=== PATIENT | female | born 1995 | race Caucasian/White ===

== ENCOUNTER 2016-04-21 21:06 | Emergency (ER) | payer OTHER ==
[~2016-04-21] VITALS: Ht 162.6 cm; Wt 64.0 kg
[2016-04-21 21:08] VITALS: BP 129/76; PULSE 92; RESP 18; TEMP 98.2; O2SAT 98
[2016-04-21] MEDS ORDERED: MULT-120 PO (23:22)
[2016-04-21] MEDS ORDERED: SULF400T PO (23:25)
[2016-04-21 23:26] VITALS: BP 124/59; PULSE 73; RESP 18; O2SAT 100
[2016-04-22 00:17] LABS: BACTERIA, URINE RARE /hpf; BLOOD, URINE TRACE (NEG); COMMENT (UR) CULTURE INDICATED; CULTURE IF INDICATED CULTURE INDICATED; GLUCOSE,URINE NEG (NEG); HYALINE CAST, URINE 2 /lpf (RARE); KETONE, URINE NEG (NEG); MUCUS URINE FEW /lpf (OCC); NITRITE,URINE NEG (NEG); PH, URINE 6.5 (5.0-8.5); SQUAMOUS EPITHELIAL CELL URINE 2 /hpf (0-5); URINE COLOR YELLOW (YELLW/STRAW)
[2016-04-22] MEDS ORDERED: MUPI2OIN TOPICAL (01:03)
[2016-04-22] MEDS ORDERED: CEPH-460 PO (01:03)
--- NOTE | 2016-04-22 01:04 | PD ---
HPI Chief Complaint: Complaint Time Seen by Provider: 23:21 Travel History International Travel<30 days: No Contact w/Intl Traveler<30days: No Traveled to known affect area: No History of Present Illness HPI To 21 year-old woman presents to the emergency department complaining of vaginal irritation and discomfort. She states that she has had frequent urinary tract infections in the past. About 5 days ago she started getting urinary frequency and burning similar to previous urinary tract infections. She was given up her physician for Bactrim. Since that time she's had worsening pain and irritation in her vault as well as painful discomfort, some vaginal discharge, and some back pain. She's taken 3 days of Bactrim now. States she's had yeast infection one time hospital wasn't this bad. History Past Medical History Medical History: Denies Significant Hx Tetanus Vaccination: > 5 Years Influenza Vaccination: No LMP: 10/30/15 : 1 Para: 1 Social History Alcohol Use: No Tobacco Use: No Allergies-Medications (Allergen,Severity, Reaction): Coded Allergies: No Known Allergies (Unverified , 04/21/16) Reported Meds & Prescriptions Reported Meds & Active Scripts Active Reported Sulfamethoxazole-Trimethoprim 400-80 Mg Tab 1 Tab PO DAILY Multivitamin Women (Multiple Vitamins W/ Minerals) 1 Tab Tab 1 Tab PO DAILY Review of Systems Except as stated in HPI: all other systems reviewed are Neg Physical Exam Narrative GENERAL: Well-appearing 21-year-old, no acute distress. SKIN: Warm and dry. HEENT: Impetigo-like rash just pulled the lower lip. CARDIOVASCULAR: Regular rate and rhythm. No murmur appreciated. RESPIRATORY: No accessory muscle use. Clear to auscultation. Breath sounds equal bilaterally. GASTROINTESTINAL: Abdomen soft, non-tender, nondistended. Hepatic and splenic margins not palpable. MUSCULOSKELETAL: No obvious deformities. No edema. NEUROLOGICAL: Awake and alert. No obvious cranial nerve deficits. Motor grossly within normal limits. Normal speech. : She appears to have crusting scabbing on the left labia minora with some edema and irritation. The small ulceration on the vulva as well but does not appear herpetiform. Some scant discharge. Otherwise unremarkable. Data Data Last Documented VS Vital Signs Date Time Temp Pulse Resp B/P Pulse Ox O2 Delivery O2 Flow Rate FiO2 04/21/16 23:26 73 18 124/59 100 Room Air 2/10/17 21:08 98.2 Orders Urinalysis - C+S If Indicated (04/21/16 23:36) Wet Prep Profile (04/21/16 23:36) Gc And Chlamydia Pcr (04/21/16 23:36) Ed Urine Pregnancytest Poc (04/21/16 23:40) Urine Culture (04/21/16 23:40) Labs Laboratory Tests Test 04/21/16 04/22/16 23:40 00:00 Urine Color YELLOW Urine Turbidity HAZY Urine pH 6.5 Urine Specific [place] 1.028 Urine Protein TRACE mg/dL Urine Glucose (UA) NEG mg/dL Urine Ketones NEG mg/dL Urine Occult Blood TRACE Urine Nitrite NEG Urine Bilirubin NEG Urine Urobilinogen LESS THAN 2.0 MG/DL Urine Leukocyte Esterase LARGE Urine RBC 12 /hpf Urine WBC 147 /hpf Urine Squamous Epithelial 2 /hpf Cells Urine Bacteria RARE /hpf Urine Hyaline Casts 2 /lpf Urine Mucus FEW /lpf Microscopic Urinalysis Comment CULTURE INDICATED Clue Cells (Wet Prep) NONE SEEN Vaginal Trichomonas (Wet Prep) NONE SEEN Vaginal Yeast (Wet Prep) NONE SEEN MDM Medical Decision Making Medical Screen Exam Complete: Yes Emergency Medical Condition: Yes Interpretation(s) LABS: UA was some pyuria, culture pending Wet prep negative GC chlamydia pending Differential Diagnosis Impetigo, yeast infection, cervicitis, other Narrative Course Medical decision making the 21-year-old young woman presents with bulbar irritation in the setting of starting antibiotics. She'll she had a yeast infection. I don't see a lot of yeastlike discharge. Wet prep did not show any yeast. She does have looks impetigo on her lower lip. It also looks like she has impetigo-like rash in the labia minora on the left side. Recommend oral Keflex, mupirocin, continue Bactrim. Follow up on urine culture. Diagnosis Primary Impression: Impetigo Additional Impression: UTI (urinary tract infection) Qualified Code: N30.00 - Acute cystitis without hematuria Additional Instructions: Take antibiotics as prescribed. Use mupirocin as prescribed. Continue Bactrim. Return to the emergency department for any new or worsening symptoms. Med/Other Pt SpecificInfo: Prescription(s) given Scripts Mupirocin Topical 2 % Oint1 Applic TOPICAL BID #22 GM Ref 0 Prov:Masoud Ward MD 04/22/16 Cephalexin (Keflex)500 Mg [id number] Mg PO Q6H 7 Days Ref 0 Prov:Masoud Ward MD 04/22/16 Disposition: 01 DISCHARGE HOME Condition: Stable Masoud Ward MD Apr 22, 2016 01:03
[2016-04-22] MEDS ORDERED: FLUCONAZOLE 100 MG TAB PO ONE (01:15)
[2016-04-22 03:48] LABS: CHLAMYDIA PCR NOT DETECTED (NOT DETECT); NEISSERIA PCR NOT DETECTED (NOT DETECT)
== END 2016-04-22 01:22 | disposition home or self-care (01) ==
LOC: NEPE 21:06
DX: L01.00 Impetigo, unspecified (principal); N39.0 Urinary tract infection, site not specified
CPT/HCPCS: 81001; 84703; 87086; 87210; 87491; 87591; 99283